=== PATIENT | female | born 1965 | race Caucasian/White ===

== ENCOUNTER → 2023-12-30 | Outpatient (CLI) | payer OTHER, SELFPAY ==
[2023-12-30 07:27] LABS: Bacteria 0 SEEN /hpf (None Seen); Mucous, Urine 0 SEEN /hpf (<or=2+); Red Blood Cells-Urine 0 SEEN /hpf (0-5)
--- OUTSIDE RECORDS SUMMARY | 2023-12-30 07:50 | XMS RPT_ITS | CCD ---
Author Name Unknown Address [address] [place] [address] Organization [facility] Care Team Providers Care Supervisor Alteration Workroom Name Role Phone Unavailable Unavailable Unavailable Belle, Shaina Unavailable Unavailable Belle, Shaina Unavailable Unavailable Belle, Shania Unavailable Unavailable Belle, Shaina Unavailable Unavailable Belle, Shaina Unavailable Unavailable Belle, Shaina Unavailable Unavailable Belle, Shaina Unavailable Unavailable Belle, Shaina Unavailable Unavailable Belle, Shaina Unavailable Unavailable Belle, Shaina Unavailable Unavailable Belle, Shaina Unavailable Unavailable Belle, Shaina Unavailable Unavailable Jing, Jack J Unavailable Unavailable Jing, Jack J Unavailable Unavailable BELLE, SHAINA ORCHANIAN Unavailable Unava ilable Delbert Cho Unavailable Unavailable Unavailable Munjapara, Valji Referring Unavailable Munjapara, Valji Primary Care Unavailable Munjapara, Valji Attending Unavailable Munjapara, Valji Referring Unavailable Munjapara, Valji Primary Care Unavailable Munjapara, Valji Attending Unavailable Munjapara, Valji Referring Unavailable Munjapara, Valji Primary Care Unavailable Munjapara, Valji Attending Unavailable Munjapara, Valji Primary Care Unavailable Munjapara, Valji Attending Unavailable Munjapara, Valji Referring Unavailable Delbert Cho MD Primary Care Provider MUNSHERRYPARA, VALJI Primary Care Unavailable MUNSHERRYPARA, VALJI Primary Care Unavailable Delbert Cho MD Primary Care Provider Allergies Allergy Classification Reported Allergen(s) Allergy Type Date of Onset Reaction(s) Facility torsemide (4 sources) torsemide; Translations: [Demadex] Drug Allergy [facility] Work Phone: (20 sources) torsemide; Translations: [Demadex] Drug Allergy 12-02-2022 Unknown [facility] (1 source) torsemide; Translations: [TORSEMIDE] Drug Allergy 12-02-2022 [facility] (1 source) Clindamycin Drug Allergy 12-29-2023 [facility] Medications Current Medications Medication Drug Class(es) Dates Sig (Normalized) Sig (Original) atorvastatin 20 mg oral tablet (20 sources) HMG-CoA Reductase Inhibitor Start: 12-10-2023 take 1 tablet by mouth once daily atorvastatin (Lipitor) 20 mg tablet Indications: Hyperlipidemia, unspecified hyperlipidemia type Take 1 tablet (20 mg) by mouth once daily. 90 tablet 3 12/10/2023 Active Completed/Discontinued Medications Medication Drug Class(es) Dates Sig (Normalized) Sig (Original) benzonatate 100 mg oral capsule (1 source) Non-narcotic Antitussive Start: 10-07-2019 End: 05-29-2023 take 100-200 mg by mouth every eight hours as needed for cough and cough benzonatate (TESSALON PERLES) 100 mg capsule Indications: Cough Take 1-2 capsules by mouth three times daily as needed. 30 capsule 0 10/07/2019 05/29/2023 Discontinued Problems Active Problems Problem Classification Problem Date Documented Date Episodic/Chronic Allergic reactions (20 sources) Contact dermatitis due to poison shaun; Translations: [Contact dermatitis and other eczema due to plants [except food]] Resolved: 06-25-2021 Episodic Anxiety disorders (20 sources) Generalized anxiety disorder; Translations: [Generalized anxiety disorder] Resolved: 12-03-2021 Chronic Disorders of lipid metabolism (20 sources) Hyperlipidemia; Translations: [Other and unspecified hyperlipidemia] Onset: 02-16-2023 12-29-2023 Chronic Esophageal disorders (20 sources) Gastroesophageal reflux disease; Translations: [Esophageal reflux] Chronic Essential hypertension (20 sources) Benign essential hypertension; Translations: [Benign essential hypertension] Onset: 12-29-2023 Resolved: 12-06-2013 12-29-2023 Chronic Past or Other Problems Problem Classification Problem Date Documented Date Episodic/Chronic Medical examination/evaluatio n (2 sources) Encounter for general adult medical examination without abnormal findings; Translations: [Encounter for general adult medical examination without abnormal findings] Onset: 07-03-2017 Episodic Osteoarthritis (20 sources) Osteoarthritis; Translations: [Osteoarthrosis, unspecified whether generalized or localized, site unspecified] Resolved: 05-09-2021 Chronic Other connective tissue disease (20 sources) Fibromyalgia; Translations: [Myalgia and myositis, unspecified] Resolved: 05-09-2021 Episodic Other connective tissue disease (16 sources) H/O: back problem; Translations: [Personal history of other musculoskeletal disorders] Resolved: 12-03-2021 Episodic Other infections; including parasitic (20 sources) H/O: viral illness; Translations: [Personal history of other infectious and parasitic diseases] Resolved: 05-09-2021 Episodic Other nervous system disorders (1 source) Carpal tunnel syndrome; Translations: [Carpal tunnel syndrome, unspecified upper limb] Onset: 04-15-2007 Resolved: 12-29-2023 12-29-2023 Chronic Other nervous system disorders (20 sources) History of clinical finding in subject; Translations: [Personal history of other disorders of nervous system and sense organs] Resolved: 05-09-2021 Episodic Results Test Name Value Interpretation Reference Range Facil ity Vital Signs Date Time Vital Sign Value Performing Clinician Facility 12-29-2023 14:43-0500 Body height 157.5 cm Delbert Cho MD Work Phone: [facility] 12-29-2023 14:43-0500 Body mass index (BMI) [Ratio] 36 kg/m2 Delbert Cho MD Work Phone: [facility] 12-29-2023 14:43-0500 Body temperature 96.01 [degF] Delbert Cho MD Work Phone: [facility] 12-29-2023 14:43-0500 Body weight 89.27 kg Delbert Cho MD Work Phone: [facility] 12-29-2023 14:43-0500 Diastolic blood pressure 61 mm[Hg] Delbert hCo MD Work Phone: [facility] 12-29-2023 14:43-0500 Heart rate 82 /min Delbert Cho MD Work Phone: [facility] 12-29-2023 14:43-0500 SaO2% (BldA) [Mass fraction] 96 % Delbert Cho MD Work Phone: [facility] 12-29-2023 14:43-0500 Systolic blood pressure 114 mm[Hg] Delbert Cho MD Work Phone: [facility] 05-29-2023 16:45-0400 Body temperature 98.29 [degF] Jarad Pryor MD Work Phone: [facility] 05-29-2023 16:45-0400 Body weight 82.74 kg Jarad Pryor MD Work Phone: [facility] 05-29-2023 16:45-0400 Diastolic blood pressure 72 mm[Hg] Jarad Pryor MD Work Phone: [facility] 05-29-2023 16:45-0400 Heart rate 83 /min Jarad Pryor MD Work Phone: [facility] 05-29-2023 16:45-0400 Respiratory rate 18 /min Jarad Pryor MD Work Phone: [facility] 05-29-2023 16:45-0400 SaO2% (BldA) [Mass fraction] 96 % Jarad Pryor MD Work Phone: [facility] 05-29-2023 16:45-0400 Systolic blood pressure 128 mm[Hg] Jarad Pryor MD Work Phone: [facility] 12-22-2022 16:53-0500 Body height 157.48 cm Delbert Cho Work Phone: [facility] Work Phone: 12-22-2022 16:53-0500 Body mass index (BMI) [Ratio] 35.67 kg/m2 Ashleymindy D Jordynpara Work Phone: [facility] Work Phone: 12-22-2022 16:53-0500 Body surface area Derived from formula 1.89 m2 Delbert D Jordynpara Work Phone: [facility] Work Phone: 12-22-2022 16:53-0500 Body temperature 97.5 [degF] Delbert D Jordynpara Work Phone: [facility] Work Phone: 12-22-2022 16:53-0500 Body weight 88.45 kg Delbert D Jordynpara Work Phone: [facility] Work Phone: 12-22-2022 16:53-0500 Diastolic blood pressure 88 mm[Hg] Delbert D Jordynpara Work Phone: [facility] Work Phone: 12-22-2022 16:53-0500 Heart rate 71 /min Delbert Cobbpara Work Phone: [facility] Work Phone: 12-22-2022 16:53-0500 SaO2% (BldA) [Mass fraction] 98 % Delbert Cobbpara Work Phone: [facility] Work Phone: 12-22-2022 16:53-0500 Systolic blood pressure 150 mm[Hg] Valmindy D Delfinjapara Work Phone: [facility] Work Phone: 05-26-2022 15:32-0400 Body height 157.48 cm Delbert D Delfinjapara Work Phone: [facility] Work Phone: 05-26-2022 15:32-0400 Body mass index (BMI) [Ratio] 34.75 kg/m2 Valmindy D Munjapara Work Phone: [facility] Work Phone: 05-26-2022 15:32-0400 Body surface area Derived from formula 1.87 m2 Valmindy D Delfinjapara Work Phone: [facility] Work Phone: 05-26-2022 15:32-0400 Body weight 86.18 kg Valmindy D Delfinjapara Work Phone: [facility] Work Phone: 05-26-2022 15:32-0400 Diastolic blood pressure 76 mm[Hg] Delbert D Delfinjapara Work Phone: [facility] Work Phone: 05-26-2022 15:32-0400 Heart rate 96 /min Delbert D Delfinjapara Work Phone: [facility] Work Phone: 05-26-2022 15:32-0400 SaO2% (BldA) [Mass fraction] 97 % Delbert D Delfinjapara Work Phone: [facility] Work Phone: 05-26-2022 15:32-0400 Systolic blood pressure 122 mm[Hg] Valmindy D Delfinjapara Work Phone: [facility] Work Phone: 04-17-2022 08:25-0400 Body height 157.48 cm Valmindy D Munjapara Work Phone: [facility] Work Phone: 04-17-2022 08:25-0400 Body mass index (BMI) [Ratio] 35.12 kg/m2 Valmindy D Munjapara Work Phone: [facility] Work Phone: 04-17-2022 08:25-0400 Body surface area Derived from formula 1.88 m2 Valmindy D Munjapara Work Phone: [facility] Work Phone: 04-17-2022 08:25-0400 Body temperature 97.2 [degF] Valmindy D Munjapara Work Phone: [facility] Work Phone: 04-17-2022 08:25-0400 Body weight 87.09 kg Valmindy D Munjapara Work Phone: [facility] Work Phone: 04-17-2022 08:25-0400 Diastolic blood pressure 78 mm[Hg] Valmindy D Munjapara Work Phone: [facility] Work Phone: 04-17-2022 08:25-0400 Heart rate 88 /min Valmindy D Munjapara Work Phone: [facility] Work Phone: 04-17-2022 08:25-0400 SaO2% (BldA) [Mass fraction] 98 % Delbert D Munjapara Work Phone: [facility] Work Phone: 04-17-2022 08:25-0400 Systolic blood pressure 118 mm[Hg] Valji D Munjapara Work Phone: [facility] Work Phone: 03-20-2022 08:34-0400 Body height 157.48 cm Valji D Munjapara Work Phone: [facility] Work Phone: 03-20-2022 08:34-0400 Body mass index (BMI) [Ratio] 35.89 kg/m2 Valmindy D Munjapara Work Phone: [facility] Work Phone: 03-20-2022 08:34-0400 Body surface area Derived from formula 1.9 m2 Valji D Munjapara Work Phone: [facility] Work Phone: 03-20-2022 08:34-0400 Body temperature 97.3 [degF] Valji D Munjapara Work Phone: [facility] Work Phone: 03-20-2022 08:34-0400 Body weight 89 kg Valji D Munjapara Work Phone: [facility] Work Phone: 03-20-2022 08:34-0400 Diastolic blood pressure 65 mm[Hg] Valji D Munjapara Work Phone: [facility] Work Phone: 03-20-2022 08:34-0400 Heart rate 66 /min Valji D Munjapara Work Phone: [facility] Work Phone: 03-20-2022 08:34-0400 SaO2% (BldA) [Mass fraction] 97 % Valji D Munjapara Work Phone: [facility] Work Phone: 03-20-2022 08:34-0400 Systolic blood pressure 112 mm[Hg] Valji D Munjapara Work Phone: [facility] Work Phone: 12-03-2021 13:54-0500 Body height 157.48 cm Valji D Munjapara Work Phone: [facility] Work Phone: 12-03-2021 13:54-0500 Body mass index (BMI) [Ratio] 36.21 kg/m2 Valji D Munjapara Work Phone: [facility] Work Phone: 12-03-2021 13:54-0500 Body surface area Derived from formula 1.9 m2 Delbert D Delfinjapara Work Phone: [facility] Work Phone: 12-03-2021 13:54-0500 Body weight 89.81 kg Valmindy D Delfinjapara Work Phone: [facility] Work Phone: 12-02-2021 13:19-0500 Body height 157.48 cm Delbert D Delfinjapara Work Phone: [facility] Work Phone: 12-02-2021 13:19-0500 Body mass index (BMI) [Ratio] 36.21 kg/m2 Delbert D Delfinjapara Work Phone: [facility] Work Phone: 12-02-2021 13:19-0500 Body surface area Derived from formula 1.9 m2 Delbert D Delfinjapara Work Phone: [facility] Work Phone: 12-02-2021 13:19-0500 Body temperature 97.3 [degF] Delbert D Delfinjapara Work Phone: [facility] Work Phone: 12-02-2021 13:19-0500 Body weight 89.81 kg Valji D Munjapara Work Phone: [facility] Work Phone: 12-02-2021 13:19-0500 Diastolic blood pressure 80 mm[Hg] Valmindy D Munjapara Work Phone: [facility] Work Phone: 12-02-2021 13:19-0500 Heart rate 93 /min Delbert Banksa Work Phone: [facility] Work Phone: 12-02-2021 13:19-0500 Respiratory rate 18 /min Delbert Cobbpara Work Phone: [facility] Work Phone: 12-02-2021 13:19-0500 SaO2% (BldA) [Mass fraction] 98 % Delbert Cho Work Phone: [facility] Work Phone: 12-02-2021 13:19-0500 Systolic blood pressure 110 mm[Hg] Delbert Banksa Work Phone: [facility] Work Phone: 06-25-2021 09:01-0400 Body height 157.48 cm Delbert Cho Work Phone: [facility] Work Phone: 06-25-2021 09:01-0400 Body mass index (BMI) [Ratio] 35.56 kg/m2 Delbert Banksa Work Phone: [facility] Work Phone: 06-25-2021 09:01-0400 Body surface area Derived from formula 1.89 m2 Delbert Banksa Work Phone: [facility] Work Phone: 06-25-2021 09:01-0400 Body temperature 96.6 [degF] Delbert Cobbpara Work Phone: [facility] Work Phone: 06-25-2021 09:01-0400 Body weight 88.18 kg Delbert Cobbpara Work Phone: [facility] Work Phone: 06-25-2021 09:01-0400 Diastolic blood pressure 57 mm[Hg] Delbert Cobbpara Work Phone: [facility] Work Phone: 06-25-2021 09:01-0400 Heart rate 69 /min Delbert Cobbpara Work Phone: [facility] Work Phone: 06-25-2021 09:01-0400 SaO2% (BldA) [Mass fraction] 97 % Delbert Cobbpara Work Phone: [facility] Work Phone: 06-25-2021 09:01-0400 Systolic blood pressure 117 mm[Hg] Delbert Cobbpara Work Phone: [facility] Work Phone: 05-09-2021 08:47-0400 Body height 157.48 cm Delbert Cobbpara Work Phone: [facility] Work Phone: 05-09-2021 08:47-0400 Body mass index (BMI) [Ratio] 36.03 kg/m2 Delbert Cobbpara Work Phone: [facility] Work Phone: 05-09-2021 08:47-0400 Body surface area Derived from formula 1.9 m2 Delbert Cobbpara Work Phone: [facility] Work Phone: 05-09-2021 08:47-0400 Body temperature 96.4 [degF] Delbert D Jordynpara Work Phone: [facility] Work Phone: 05-09-2021 08:47-0400 Body weight 89.36 kg Delbert D Delfinjapara Work Phone: [facility] Work Phone: 05-09-2021 08:47-0400 Diastolic blood pressure 92 mm[Hg] Delbert Cho Work Phone: [facility] Work Phone: 05-09-2021 08:47-0400 Heart rate 56 /min Delbert Cho Work Phone: [facility] Work Phone: 05-09-2021 08:47-0400 SaO2% (BldA) [Mass fraction] 98 % Delbert Mark Cho Work Phone: [facility] Work Phone: 05-09-2021 08:47-0400 Systolic blood pressure 150 mm[Hg] Delbert Cho Work Phone: [facility] Work Phone: Encounters Encounter Date Encounter Type Care Provider Facility Start: 12-29-2023 End: 12-29-2023 Office outpatient visit 25 minutes Delbert Cho MD Work Phone: [facility] Procedures Date Procedure Procedure Detail Performing Clinician Start: 12-29-2023 Mammography Delbert mccabe MD Work Phone: Start: 12-29-2023 Microscopic observat ion [Identifier] in Cervix by Cyto stain Delbert Cho MD Work Phone: Start: 05-29-2023 Urnls dip stick/tabl et rgnt auto w/o microscopy Ellen Parry AIR BRAKE ADJUSTER.ELECTRICAL INSTRUMENT TECHNICIAN Work Phone: Start: 12-30-2022 Lipid 1996 panel - S carlos or Plasma Delbert Cho MD Work Phone: Start: 12-30-2022 Thyrotropin [Units/v olume] in Serum or Plasma Delbert Cho MD Work Phone: Start: 04-15-2016 Mammography Jarad ramos MD Work Phone: Release of trigger finger [facility] Work Phone: Plan of Treatment Date Care Activity Detail Author Start: 12-31-2027 Lipid panel Lipid Panel [facility] Start: 12-28-2026 Screening for malign ant neoplasm of cervix [facility] Start: 12-30-2025 Diabetes mellitus screening Diabetes Screening [facility] Start: 12-29-2024 Yearly Adult Physical Yearly Adult P hysical [facility] Start: 12-28-2024 Screening for malign ant neoplasm of breast Mammogram [facility] Start: 08-04-2024 Screening for malign ant neoplasm of colon [facility] Start: 04-24-2024 Influenza vaccination Influenza Vacc ine (#1) [facility] Immunizations Immunization Date Immunization Notes Care Provider Andrae jonesdeclan 08-27-2022 influenza, injectabl e, quadrivalent, preservative free Valji Mark Munjapara Work Phone: [facility] Work Phone: 08-27-2022 influenza virus vaccine, unspecified formulation Delbert Cho MD Work Phone: [facility] Work Phone: 12-14-2021 Comirnaty 30 MCG/0.3 ML Intramuscular Suspension Valji Mark Cobbpara Work Phone: [facility] Work Phone: 08-14-2021 influenza, injectabl e, quadrivalent, preservative free Valji D Munjapara Work Phone: [facility] Work Phone: 01-10-2021 Pfizer-BioNTech COVID-19 Vacc 30 MCG/0.3ML Intramuscular Suspension Valji D Munjapara Work Phone: [facility] Work Phone: 12-20-2020 Pfizer-BioNTech COVID-19 Vacc 30 MCG/0.3ML Intramuscular Suspension Valji D Munjapara Work Phone: [facility] Work Phone: 06-22-2020 influenza virus vaccine, unspecified formulation Delbert Cho Work Phone: [facility] Work Phone: Payers Date Payer Category Payer Unknown [id number] 2019 Unknown 1965 Unknown [id number] 1965 Unknown [id number] [id number] 1965 Unknown [id number] [id number]. [id number] 1965 Unknown [id number] Social History Date Type Detail Facility Start: 07-01-2017 End: 07-03-2017 Tobacco smoking status WIIS Unknown if ever smoked [facility] Work Phone: Start: 1965 Sex Assigned At Not on file [facility] Work Phone: Start: 09-30-2020 End: 05-29-2023 [facility] Work Phone: Start: 04-15-2016 End: 12-29-2023 Tobacco smoking status NHIS Never smoked tobacco [facility] Start: 04-15-2016 End: 12-29-2023 Tobacco use and exposure Smokeless tobacco non-user [facility] Start: 05-29-2023 Alcohol intake 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 (finding) [facility] Start: 09-30-2020 End: 05-29-2023 Tobacco use panel [facility] National Score (1-100), lower number is lower risk Not on file [facility] Start: 12-29-2023 Alcohol intake Ex-drinker (finding) [facility] Work Phone: Start: 12-19-2023 End: 12-29-2023 Exposure to SARS-CoV-2 (event) Not sure [facility] Medical Equipment Procedure Code Equipment Code Equipment Origin al Text Equipment Identifier Dates Once a week [id number] Start: 01-02-2023 End: 12-29-2023 Clinical Notes 12-02-2022 to 12-29-2023 Assessment & Plan Note - Delbert Cho MD - 12/29/2023 3:06 PM ESTAssessment & Plan Note - Delbert Cho MD - 12/29/2023 3:06 PM Jarad Ulloa MD - 05/29/2023 4:53 PM EDT Note Date & Type Note Facility 12-29-2023 Evaluation + Plan note Associated Problem(s): Benign essential hypertension Patients BP readings reviewed and addressed, as we age our arteries turn stiffer and less elastic. Restricting salt consumption and staying physically fit with regular exercise regimen is the only way to keep our vasculature less tonic. Studies have shown that keeping ideal body wt, exercise routine about 140 to 150 minutes a week, eating variety of plant based diet and drinking plentiful water are quite helpful. Monitor BP twice or once a week at home and bring log to be reviewed by me. Uncontrolled BP has rat exterminator consequences including heart failure, myocardial infarction, accelerated atherosclerosis and kidney dysfunction. Therapy reviewed and explained. [facility] Work Phone: 12-29-2023 Miscellaneous Notes Associated Problem(s): Benign essential hypertension Patients BP readings reviewed and addressed, as we age our arteries turn stiffer and less elastic. Restricting salt consumption and staying physically fit with regular exercise regimen is the only way to keep our vasculature less tonic. Studies have shown that keeping ideal body wt, exercise routine about 140 to 150 minutes a week, eating variety of plant based diet and drinking plentiful water are quite helpful. Monitor BP twice or once a week at home and bring log to be reviewed by me. Uncontrolled BP has rat exterminator consequences including heart failure, myocardial infarction, accelerated atherosclerosis and kidney dysfunction. Therapy reviewed and explained. documented in this encounter [facility] Work Phone: 05-29-2023 Note HNO ID: [id number] Author: Jarad Pryor MD Service: ? Author Type: Physician Type: Progress Notes Filed: 05/29/2023 5:17 PM Note Text: Patient presents with: Urinary Frequency: Frequency, burning and urgency x 1 week HPI: Symptoms for 1 week. Dysuria: some, resolved Frequency: Yes Hematuria: No Discharge/vaginal irritation: No Nausea: No Fever or chills: No Back pain: bilateral lower back Abdominal pain: No Prior UTI: Yes Personal history of kidney stones: No MEDICATIONS: Current Outpatient Medications Medication Sig atorvastatin (LIPITOR) 10 mg tablet Take by mouth. Benazepril-hydroCHLOROthiazide 10-12.5 mg per tablet pantoprazole DR (PROTONIX) 40 mg tablet Take 40 mg by mouth. levothyroxine sodium(SYNTHROID 50 MCG TAB) 100mcg Take one(1) tablet daily. cholecalciferol, Vitamin D3, (VITAMIN D3) 50,000 unit cap capsule Take 1 capsule by mouth once each week. (Patient not taking: Reported on 10/07/2019 ) No current facility-administered medications for this visit. ALLERGIES: ALLERGIES Allergen Reactions Torsemide Unknown VITALS: BP 128/72 Pulse 83 Temp 36.8 ?C (98.3 ?F) (Tympanic) Resp 18 Wt 82.7 kg (182 lb 6.4 oz) LMP 02/18/2008 SpO2 96% BMI 32.83 kg/m? PHYSICAL EXAM: GEN: NAD HEENT: EOMI, conjunctiva clear, HEART: regular rate and rhythm, no murmurs LUNGS: clear to auscultation, no wheezes or crackles, no increased WOB ABDOMEN: Soft, nondistended, no masses, lower abdominal discomfort without tenderness BACK: No CVA tenderness ASSESSMENT/PLAN: 1. Urinary frequency - ICD9: 788.41, ICD10: R35.0 - UA positive for reginaldo esterase. Symptoms consistent with urinary tract infection. - UA DIP, URINE (POC) Start nitrofurantoin. - URINE CULTURE Jarad Pryor MD [facility] 05-29-2023 History of Presen t illness Narrative Patient presents with: Urinary Frequency: Frequency, burning and urgency x 1 week HPI: Symptoms for 1 week. Dysuria: some, resolved Frequency: Yes Hematuria: No Discharge/vaginal irritation: No Nausea: No Fever or chills: No Back pain: bilateral lower back Abdominal pain: No Prior UTI: Yes Personal history of kidney stones: No MEDICATIONS: Current Outpatient Medications Medication Sig atorvastatin (LIPITOR) 10 mg tablet Take by mouth. Benazepril-hydroCHLOROthiazide 10-12.5 mg per tablet pantoprazole DR (PROTONIX) 40 mg tablet Take 40 mg by mouth. levothyroxine sodium(SYNTHROID 50 MCG TAB) 100mcg Take one(1) tablet daily. cholecalciferol, Vitamin D3, (VITAMIN D3) 50,000 unit cap capsule Take 1 capsule by mouth once each week. (Patient not taking: Reported on 10/07/2019 ) No current facility-administered medications for this visit. ALLERGIES: ALLERGIES Allergen Reactions Torsemide Unknown VITALS: BP 128/72 Pulse 83 Temp 36.8 C (98.3 F) (Tympanic) Resp 18 Wt 82.7 kg (182 lb 6.4 oz) LMP 02/18/2008 SpO2 96% BMI 32.83 kg/m PHYSICAL EXAM: GEN: NAD HEENT: EOMI, conjunctiva clear, HEART: regular rate and rhythm, no murmurs LUNGS: clear to auscultation, no wheezes or crackles, no increased WOB ABDOMEN: Soft, nondistended, no masses, lower abdominal discomfort without tenderness BACK: No CVA tenderness ASSESSMENT/PLAN: 1. Urinary frequency - ICD9: 788.41, ICD10: R35.0 - UA positive for reginaldo esterase. Symptoms consistent with urinary tract infection. - UA DIP, URINE (POC) Start nitrofurantoin. - URINE CULTURE Jarad Pryor MD documented in this encounter [facility] 12-02-2022 Note HNO ID: [id number] Author: Bradley Fontanez APRN.ELECTRICAL INSTRUMENT TECHNICIAN Service: ? Author Type: Nurse Practitioner Type: Progress Notes Filed: 12/02/2022 8:20 AM Note Text: Subjective HPI A nontoxic appearing female presents to urgent care with chief complaint of possible UTI. Duration of symptoms 4 days. Associated symptoms dysuria, frequency, and urgency. Patient has history of UTIs in past with similar signs and symptoms. Patient denies the use of any [id number] medications or home remedies for symptom management. Patient states pain is a 3/10. Patient denies any fevers, flank pain, abdominal pain, nausea, vomiting, vaginal discharge, or urological abnormalities. Past medical history prescription medication use and previous labs reviewed. .Patient presents with: Urinary Problem: Pt reported urinary frequency, burning with urination x4 days. PAST MEDICAL HISTORY Diagnosis Date Esophageal reflux Gastroesophageal reflux Other and unspecified hyperlipidemia Hyperlipidemia Unspecified hypothyroidism PAST SURGICAL HISTORY Procedure Laterality Date PAST SURGICAL HISTORY OF 2004 [facility] thermal ablation/[place], [place] ALLERGIES Torsemide MEDICATIONS atorvastatin (LIPITOR) 10 mg tablet Take by mouth. Benazepril-hydroCHLOROthiazide 10-12.5 mg per tablet levothyroxine sodium(SYNTHROID 50 MCG TAB) 100mcg Take one(1) tablet daily. pantoprazole DR (PROTONIX) 40 mg tablet Take 40 mg by mouth. (Patient not taking: Reported on 12/02/2022) benzonatate (TESSALON PERLES) 100 mg capsule Take 1-2 capsules by mouth three times daily as needed. (Patient not taking: Reported on 12/02/2022) cyanocobalamin (VITAMIN B-12) 1,000 mcg tab Take 1,000 mcg by mouth once daily. (Patient not taking: Reported on 12/02/2022) cholecalciferol, Vitamin D3, (VITAMIN D3) 50,000 unit cap capsule Take 1 capsule by mouth once each week. (Patient not taking: Reported on 10/07/2019 ) DULoxetine (CYMBALTA) 30 mg capsule Take 30 mg by mouth once daily. (Patient not taking: Reported on 12/02/2022) FAMILY HISTORY Problem Relation Age of Onset Cancer Mother oral Cancer Father prostate Heart Father Diabetes Son type 1 Social History Tobacco Use Smoking status: Never Smokeless tobacco: Never Substance Use Topics Alcohol use: No Drug use: No BP 128/76 Pulse 69 Temp 36.9 ?C (98.4 ?F) (Tympanic) Resp 18 Wt 86.4 kg (190 lb 6.4 oz) LMP 02/18/2008 SpO2 96% BMI 34.27 kg/m? Review of Systems Constitutional: Negative for chills, fever and malaise/fatigue. HENT: Negative for congestion, ear discharge, ear pain, sinus pain and sore throat. Eyes: Negative for blurred vision, pain, discharge and redness. Respiratory: Negative for cough, hemoptysis, sputum production, shortness of breath, wheezing and stridor. Cardiovascular: Negative for chest pain. Gastrointestinal: Negative for abdominal pain, diarrhea, nausea and vomiting. Genitourinary: Positive for dysuria, frequency, hematuria and urgency. Negative for flank pain. Musculoskeletal: Negative for myalgias. Skin: Negative for itching and rash. Neurological: Negative for dizziness and headaches. Objective Physical Exam Constitutional: General: She is not in acute distress. Appearance: She is not diaphoretic. HENT: Head: Normocephalic. Eyes: Conjunctiva/sclera: Conjunctivae normal. Pupils: Pupils are equal, round, and reactive to light. Cardiovascular: Rate and Rhythm: Normal rate and regular rhythm. Heart sounds: Normal heart sounds. Pulmonary: Effort: Pulmonary effort is normal. No tachypnea, accessory muscle usage or respiratory distress. Breath sounds: Normal breath sounds. No stridor. No wheezing, rhonchi or rales. Abdominal: General: There is no distension. Palpations: Abdomen is soft. Tenderness: There is no abdominal tenderness. There is no right CVA tenderness, left CVA tenderness, guarding or rebound. Musculoskeletal: Cervical back: Normal range of motion. Skin: General: Skin is warm and dry. Neurological: Mental Status: She is alert and oriented to person, place, and time. ASSESSMENT/PLAN: 1. Urinary frequency - ICD9: 788.41, ICD10: R35.0 - UA DIP, URINE (POC) - URINE CULTURE Blood protein leukocytes nitrites noted on urine dip. History of UTIs this feels similar. Patient will be placed on Keflex antibiotics. Urine culture ordered. Tailor antibiotic therapy to culture results. Follow-up with PCP 7 to 10 days for repeat urinalysis. Patient was educated on supportive therapies. Patient was instructed to immediately proceed to emergency room for any new, worsening, or symptoms lasting longer than anticipated. The patient's clinical presentation is otherwise unremarkable at this time. Based on exam and clinical finding, the patient is stable for discharge. Plan of care was discussed with patient. Patient verbalizes understanding and agrees to plan of care. This note was (more content not included)... [facility] Diagnosis Obesity, unspecified classification, unspecified obesity type, unspecified whether serious comorbidity present- Primary Encounter for screening mammogram for malignant neoplasm of breast Hypertension, unspecified type Annual visit for general adult medical examination with abnormal findings Benign essential hypertension Essential hypertension, benign Acquired hypothyroidism Unspecified hypothyroidism Hyperlipemia, mixed Mixed hyperlipidemia Encounter for screening mammogram for malignant neoplasm of breast documented in this encounter [facility] Work Phone: History of Present illness Narrative* This is a 55-year-old patient who had a history of sleep apnea obesity hypertension hyperlipidemia menopause thyroid dysfunction complaining of the maculopapular vesicular skin lesion after exposure to poison shaun onset acutely duration 1 week progressed intermittently aggravating factor immunocompromised condition anxiety anemia thyroid dysfunction's contact dermatitis with the pruritus insomnia try Benadryl Lidex cream does not get any better advised to get Kenalog 40 intramuscular Medrol Dosepak Benadryl hydration sent for the blood test follow-up recommended. * Comorbid condition obesity hypertension hyperlipidemia hypothyroidism acid reflux and insulin resistance syndrome * Negative for COVID-19 * Negative for rectal bleeding vaginal bleeding hematuria [facility] Work Phone: History of Present illness Narrative* This is a 56-year-old patient have anxiety obesity sleep apnea hypertension hyperlipidemia came forphysical discuss about weight and back pain * Patient is 56-year-old have 4 children no siblings * Mother have oral cancer * Father of heart attack * History of ablation therapy carpal tunnel * Complaining of the arthralgia myalgia fatigue tired lower back pain onset gradually duration few weeks progressed intermittently aggravated by cholesterol medication obesity and arthritis. * No skin rash no trauma * Negative for COVID-19 [facility] Work Phone: History of Present illness Narrative* 56-year-old patient have a hypertension hyperlipidemia acid reflux is complaining of acute on chronic right and left palm neck pain leg pain arthralgia myalgia fatigue tired weakness onset gradually duration few weeks progressed intermittently * Problem #1 neck pain shoulder pain arm pain plan ibuprofen x-ray blood tests if problems continue advised to get follow-up rule out any TIA versus exacerbation of underlying thyroid dysfunctions * Hyperlipidemia Lipitor * Proteinuria Lotrel * Gastritis Protonix * Hypothyroidism check T3-T4 TSH hold levothyroxine * Sent for the x-ray of the right shoulder blood test follow-up in a 2 weeks if does not get any better go to the emergency room right away [facility] Work Phone: History of Present illness Narrative* This is a 56-year-old patient have a gastritis arthritis obesity hypertension hyperlipidemia complaining of the decreased ADL decreased mobility arthralgia myalgia fatigue tired weakness lethargic because of the weight gain * Arthralgia myalgia fatigue tired secondary to metabolic syndrome obesity shoulder pain metformin * Negative for fall * Negative but imaging pleuritic chest pain palpitation or headache * Negative for DVT PE or COVID-19 [facility] Work Phone: History of Present illness Narrative* This is a 56-year-old patient have a gastritis arthritis obesity hypertension hyperlipidemia complaining of the decreased ADL decreased mobility arthralgia myalgia fatigue tired weakness lethargic because of the weight gain * Arthralgia myalgia fatigue tired secondary to metabolic syndrome obesity shoulder pain metformin * Negative for fall * Negative but imaging pleuritic chest pain palpitation or headache * Negative for DVT PE or COVID-19 * Obstructive sleep apnea diet exercise Flonase uses CPAP nightly depression 25 from today sleep study later [facility] Work Phone: History of Present illness Narrative* 57-year-old patient who had a history of obesity hypertension hyperlipidemia sleep apnea complaining of cough congestion arthralgia myalgia fatigue tired weakness without any choking angioedema hypokalemia patient developed cough irritation in the throat after taking benazepril * Advised discontinue benazepril take some Benadryl Pepcid AC good Benicar * At age of 57 female advised skin cancer breast cancer cervical cancer colon cancer screening sent for the Cologuard and mammogram * Patient would like to lose weight given diet exercise plus Saxenda side effect of pancreatitis explained [facility] Work Phone: History of Present illness Narrative* Delbert Cho MD - 12/29/2023 3:45 PM EST Subjective Patient ID: Chrystal Castaneda is a 58 y.o. female who presents for Fatigue (Over a month now ). Assessment/Plan Obesity BMI 36 advised diet exercise sleep apnea test dietitian evaluation given Ozempic Hypertension Lotensin monitor BMP twice a year Hyperlipidemia Lipitor 20 mg check LFT lipid CPK once a year Hypothyroidism Synthroid 100 mcg a day TSH twice a year Arthritis vitamin C vitamin D calcium supplement Gastritis Protonix 40 mg a day magnesium once a year Refer to GI Dr. Hernandez [facility] [facility] [facility] Dr. Klein Advised to get hepatitis B MMR Tdap zoster COVID-19 vaccine from pharmacy follow-up 3 months Problem List Items Addressed This Visit Acquired hypothyroidism Hyperlipemia, mixed Annual visit for general adult medical examination with abnormal findings Relevant Orders HIV 1/2 Antigen/Antibody Screen with Reflex to Confirmation Hepatitis C antibody CBC and Auto Differential Comprehensive Metabolic Panel Hemoglobin A1C Lipid Panel TSH with reflex to Free T4 if abnormal Microscopic Only, Urine Colonoscopy Screening; Average Risk Patient Benign essential hypertension Patients BP readings reviewed and addressed, as we age our arteries turn stiffer and less elastic. Restricting salt consumption and staying physically fit with regular exercise regimen is the only way to keep our vasculature less tonic. Studies have shown that keeping ideal body wt, exercise routine about 140 to 150 minutes a week, eating variety of plant based diet and drinking plentiful water are quite helpful. Monitor BP twice or once a week at home and bring log to be reviewed by me. Uncontrolled BP has chcf consequences including heart failure, myocardial infarction, accelerated atherosclerosis and kidney dysfunction. Therapy reviewed and explained. Obesity - Primary Relevant Orders HIV 1/2 Antigen/Antibody Screen with Reflex to Confirmation Hepatitis C antibody CBC and Auto Differential Comprehensive Metabolic Panel Hemoglobin A1C Lipid Panel TSH with reflex to Free T4 if abnormal Microscopic Only, Urine Colonoscopy Screening; Average Risk Patient Patient was evaluated today, problem list was reviewed, problems and concerns addressed, Rx list reviewed and updated, lab and tests were noted and reviewed. Life style changes were discussed, alwaysit works better if we eat plant based diet and plenty of fibres and roughage. Consume adequate amount of water and avoid alcohol, light to moderate physical activities and stress reduction are alwaysbeneficial for ongoing physical well being. Do not forget to have 6 to 7 hours of sleep regularly and avoid late night yolis screen exposure. HPI 58-year-old patient have metabolic syndrome insulin resistance syndrome hypertension hyperlipidemia hyperglycemia hypothyroidism gastritis sleep apnea complaining arthralgia myalgia extremity fatigue and weakness onset gradual duration few months progressed slowly aggravated by polypharmacy endocrine problem obesity sleep apnea underlying sugar and insulin resistance syndrome cannot be rule out. Patient with the help of diet exercise Ozempic successfully lost weight and feeling much better last time. Past Medical History: Diagnosis Date Allergic contact dermatitis due to plants, except food 05/09/2021 Poison shuan Anesthesia of skin Numbness and tingling Anxiety disorder, unspecified Anxiety and depression Essential (primary) hypertension 09/27/2013 Benign essential hypertension Fibromyalgia 03/02/2018 Fibromyalgia muscle pain Functional dyspepsia Indigestion Generalized anxiety disorder 12/02/2021 MELISA (generalized anxiety disorder) Menopausal and female climacteric states 04/10/2014 Perimenopause Other thyrotoxicosis without thyrotoxic crisis or storm 12/02/2021 Iatrogenic hyperthyroidism Pain in right shoulder 04/17/2022 Chronic right shoulder pain Pain in unspecified joint 11/27/2015 Pain in joints Personal history of diseases of the blood and blood-forming organs and certain disorders involving the immune mechanism History of anemia Personal history of diseases of the skin and subcutaneous tissue 04/19/2018 History of eczema Personal history of diseases of the skin and subcutaneous tissue 04/19/2018 History of folliculitis Personal history of other diseases of the female genital tract Vaginal delivery Personal history of other diseases of the musculoskeletal system and connective tissue 07/07/2017 History of muscle pain Personal history of other diseases of the musculoskeletal system and connective tissue 07/07/2017 History of muscle pain Personal history of other diseases of the musculoskeletal system and connective tissue 12/02/2021 History of low back pain Personal history of other diseases of the nervous system and sense organs 03/02/2018 History of neuropathy Personal history of other diseases of the nervous system and sense organs 12/02/2021 History of obstructive sleep apnea Personal history of other endocrine, nutritional and metabolic disease 04/17/2022 History of obesity Personal history of other endocrine, nutritional and metabolic disease 03/21/2022 History of vitamin D deficiency Personal history of other endocrine, nutritional and metabolic disease History of thyroid disease Personal history of other infectious and parasitic diseases 11/28/2015 History of Harrison-Anderson virus infection Personal history of other infectious and parasitic diseases History of mumps Personal history of other infectious and parasitic diseases History of varicella Personal history of other specified conditions 07/07/2017 History of edema Personal history of other specified conditions 04/21/2019 History of fatigue Personal history of urinary (tract) infections 05/06/2019 History of urinary tract infection Radiculopathy, cervical region 03/02/2018 Acute cervical radiculopathy Unspecified osteoarthritis, unspecified site 03/02/2018 OA (osteoarthritis) Past Surgical History: Procedure Laterality Date CARPAL TUNNEL RELEASE Bilateral FINGER SURGERY Allergies Allergen Reactions Clindamycin Swelling Torsemide Unknown Current Outpatient Medications Medication Sig Dispense Refill atorvastatin (Lipitor) 20 mg tablet Take 1 tablet (20 mg) by mouth once daily. 90 tablet 3 benazepriL-hydrochlorothiazide (Lotensin HCT) 10-12.5 mg tablet TAKE 1 TABLET TWICE A DAY (Patient taking differently: Take 1 tablet by mouth once daily.) 180 tablet 3 Synthroid 100 mcg tablet Take 1 tablet (100 mcg) by mouth see administration instructions. Take 1 tablet by mouth daily Thursday through Thursday. Take 1/2 tablet on Thursday and Thursday 90 tablet 3 No current facility-administered medications for this visit. Family History Problem Relation Name Age of Onset Other (oral cancer) Mother Glaucoma Mother Heart disease Father Prostate cancer Father Social History Socioeconomic History Marital status: Spouse name: None Number of children: None Years of education: None Highest education level: None Occupational History None Tobacco Use Smoking status: Never Smokeless tobacco: Never Substance and Sexual Activity Alcohol use: Not Currently Alcohol/week: 0.0 - 1.0 standard drinks of alcohol Drug use: Never Sexual activity: None Other Topics Concern None Social History Narrative None Social Determinants of Health Financial Resource Strain: Not on file Food Insecurity: Not on file Transportation Needs: Not on file Physical Activity: Not on file Stress: Not on file Social Connections: Not on file Intimate Partner Violence: Not on file Housing Stability: Not on file Immunization History Administered Date(s) Administered Flu vaccine (IIV4), preservative free *Check age/dose* 08/14/2021, 08/27/2022 Influenza, Unspecified 07/18/2013, 06/22/2020 Pfizer Torres Cap SARS-CoV-2 12/14/2021 Pfizer Purple Cap SARS-CoV-2 12/20/2020, 01/10/2021 Review of Systems Review of systems is otherwise negative unless stated above or in history of present illness. Objective Visit Vitals BP 114/61 (BP Location: Left arm, Patient Position: Sitting, BP Cuff Size: Large adult) Pulse 82 Temp 35.6 C (96 F) Ht 1.575 m (5' 2 ) Wt 89.3 kg (196 lb 12.8 oz) SpO2 96% BMI 36.00 kg/m Smoking Status Never BSA 1.98 m Physical Exam Constitutional: BMI 36 General: not in acute distress. HENT: Head: Normocephalic and atraumatic. Nose: Nose normal. Eyes: Extraocular Movements: Extraocular movements intact. Conjunctiva/sclera: Conjunctivae normal. Cardiovascular: Heart murmur Rate and Rhythm: Normal rate , No M/R/G Pulmonary: Effort: Pulmonary effort is normal. Breath sounds: Normal, Bilat Equal AE Skin: General: Skin is warm. Neurological: Fibromyalgia Mental Status: He is alert and oriented to person, place, and time. Psychiatric: Mood and Affect: Mood normal. Behavior: Behavior normal. Musculoskeletal fibromyalgia fatigue FROM in all extremitirs, Joint-no swelling or tenderness No visits with results within 4 Month(s) from this visit. Latest known visit with results is: Orders Only on 12/30/2022 Component Date Value Ref Range Status WBC, Urine 12/30/2022 13 (A) 0 - 5 /HPF Final RBC, Urine 12/30/2022 2 0 - 5 /HPF Final Squamous Epithelial Cells, Urine 12/30/2022 3 /HPF Final Renal Epithalial Cells, Urine 12/30/2022 <1 /HPF Final Mucus, Urine 12/30/2022 2+ /LPF Final Radiology: Reviewed imaging in powerchart. BI mammo bilateral screening tomosynthesis Result Date: 12/29/2023 These images are not reportable by radiology and will not be interpreted by Radiologists. Charting was completed using voice recognition technology and may include unintended errors. documented in this [facility] Work Phone: Summary Purpose Family History Unknown Family Member Name Dates Details Oral cancer: Mother Status:Active : Mother, Father Status:Active Family history of myocardial infarction: Father(V17.3, Z82.49) Status:Active Unknown Family Member Name Dates Details Oral cancer: Mother Status:Active : Mother, Father Status:Active Family history of myocardial infarction: Father(V17.3, Z82.49) Status:Active Unknown Family Member Name Dates Details Oral cancer: Mother Status:Active : Mother, Father Status:Active Family history of myocardial infarction: Father(V17.3, Z82.49) Status:Active Unknown Family Member Name Dates Details Oral cancer: Mother Status:Active : Mother, Father Status:Active Family history of myocardial infarction: Father(V17.3, Z82.49) Status:Active Unknown Family Member Name Dates Details Oral cancer: Mother Status:Active : Mother, Father Status:Active Family history of myocardial infarction: Father(V17.3, Z82.49) Status:Active Unknown Family Member Name Dates Details Oral cancer: Mother Status:Active : Mother, Father Status:Active Family history of myocardial infarction: Father(V17.3, Z82.49) Status:Active Unknown Family Member Name Dates Details Oral cancer: Mother Status:Active : Mother, Father Status:Active Family history of myocardial infarction: Father(V17.3, Z82.49) Status:Active Unknown Family Member Name Dates Details Oral cancer: Mother Status:Active : Mother, Father Status:Active Family history of myocardial infarction: Father(V17.3, Z82.49) Status:Active Unknown Family Member Name Dates Details Oral cancer: Mother Status:Active : Mother, Father Status:Active Family history of myocardial infarction: Father(V17.3, Z82.49) Status:Active Unknown Family Member Name Dates Details Oral cancer: Mother Status:Active : Mother, Father Status:Active Family history of myocardial infarction: Father(V17.3, Z82.49) Status:Active Unknown Family Member Name Dates Details Family history of myocardial infarction: Father(V17.3, Z82.49) Status:Active : Mother, Father Status:Active Oral cancer: Mother Status:Active Unknown Family Member Name Dates Details Oral cancer: Mother Status:Active : Mother, Father Status:Active Family history of myocardial infarction: Father(V17.3, Z82.49) Status:Active Unknown Family Member Name Dates Details Oral cancer: Mother Status:Active : Mother, Father Status:Active Family history of myocardial infarction: Father(V17.3, Z82.49) Status:Active Unknown Family Member Name Dates Details Oral cancer: Mother Status:Active : Mother, Father Status:Active Family history of myocardial infarction: Father(V17.3, Z82.49) Status:Active Unknown Family Member Name Dates Details Oral cancer: Mother Status:Active : Mother, Father Status:Active Family history of myocardial infarction: Father(V17.3, Z82.49) Status:Active Unknown Family Member Name Dates Details Oral cancer: Mother Status:Active : Mother, Father Status:Active Family history of myocardial infarction: Father(V17.3, Z82.49) Status:Active Unknown Family Member Name Dates Details Oral cancer: Mother Status:Active : Mother, Father Status:Active Family history of myocardial infarction: Father(V17.3, Z82.49) Status:Active Unknown Family Member Name Dates Details Oral cancer: Mother Status:Active : Mother, Father Status:Active Family history of myocardial infarction: Father(V17.3, Z82.49) Status:Active Unknown Family Member Name Dates Details Oral cancer: Mother Status:Active : Mother, Father Status:Active Family history of myocardial infarction: Father(V17.3, Z82.49) Status:Active Unknown Family Member Name Dates Details : Mother, Father Status:Active Oral cancer: Mother Status:Active Family history of myocardial infarction: Father(V17.3, Z82.49) Status:Active Unknown Family Member Name Dates Details : Mother, Father Status:Active Oral cancer: Mother Status:Active Family history of myocardial infarction: Father(V17.3, Z82.49) Status:Active Unknown Family Member Name Dates Details : Mother, Father Status:Active Oral cancer: Mother Status:Active Family history of myocardial infarction: Father(V17.3, Z82.49) Status:Active Unknown Family Member Name Dates Details Oral cancer: Mother Status:Active : Mother, Father Status:Active Family history of myocardial infarction: Father(V17.3, Z82.49) Status:Active Unknown Family Member Name Dates Details Oral cancer: Mother Status:Active : Mother, Father Status:Active Family history of myocardial infarction: Father(V17.3, Z82.49) Status:Active Unknown Family Member Name Dates Details Oral cancer: Mother Status:Active : Mother, Father Status:Active Family history of myocardial infarction: Father(V17.3, Z82.49) Status:Active Unknown Family Member Name Dates Details Oral cancer: Mother Status:Active : Mother, Father Status:Active Family history of myocardial infarction: Father(V17.3, Z82.49) Status:Active Unknown Family Member Name Dates Details Oral cancer: Mother Status:Active : Mother, Father Status:Active Family history of myocardial infarction: Father(V17.3, Z82.49) Status:Active Unknown Family Member Name Dates Details Oral cancer: Mother Status:Active : Mother, Father Status:Active Family history of myocardial infarction: Father(V17.3, Z82.49) Status:Active Advance Directives No Advanced Directives Records FoundNo Advanced Directives Records FoundNo Advanced Directives Records FoundNo Advanced Directives Records FoundNo Advanced Directives Records FoundNo Advanced Directives Records Found Chief Complaint * thyroid check * very fatigue * rash on right arm and right foot * physical * sore low back pain * physical * sore low back pain * I spent 15 minutes obtaining and discussing depression screening using pHq-2 questions with patientdocumented in the chart treatment plan discussI spent 15 minutes [id number] I spent 15 minutes [id number]. This patient discussing cardiovascular risk and behavior therapy of nutrition choices, exercise, and elevation of the habits contributing to risk. We agree on plan how they may be able to reduce the current cardiovascular risk for patient with risk calculation more than 10% aspirin use was discussed and encouraged unless no one allergy or increased discomfort bleeding or contraindication use of aspirin * thyroid check * right shoulder pain that goes from ear down arm * discuss weight Obesity arthralgia myalgia fatigue tiredObesity arthralgia myalgia fatigue tired obesity chronic fatigue sleep apnea advised use a CPAP started in the pressure H2O 25* cough possibly due to a medication * discuss weight Reason for Referral Specialty Diagnoses / Procedures Referred By Yuli zafar Referred To Contact Radiology Diagnoses Hypertension, unspecified type Procedures CT cardiac scoring wo IV contrast Delbert Cho MD [address] [place] [address] Referral ID Status Reason Start Date Expiration Date Visits Requested Visits Authorized [id number] Pending Review Perform Procedure 12/29/2023 12/28/2024 1 1 Specialty Diagnoses / Procedures Referred By Yuli zafar Referred To Contact Gastroenterology Diagnoses Encounter for screening mammogram for malignant neoplasm of breast Hypertension, unspecified type Obesity, unspecified classification, unspecified obesity type, unspecified whether serious comorbidity present Annual visit for general adult medical examination with abnormal findings Procedures Colonoscopy Screening; Average Risk Patient WA COLONOSCOPY FLX DX W/COLLJ SPEC WHEN PFRMD WA COLON CA SCRN NOT HI RSK IND WA COLORECTAL SCRN; HI RISK IND WA COLONOSCOPY W/BIOPSY SINGLE/MULTIPLE WA COLSC FLX W/RMVL OF TUMOR POLYP LESION SNARE TQ WA COLSC FLX W/REMOVAL LESION BY HOT BX FORCEPS Delbert Cho MD [address] [place] [address] Referral ID Status Reason Start Date Expiration Date V isits Requested Visits Authorized [id number] Pending Review 12/29/2023 12/28/2024 1 1 Specialty Diagnoses / Procedures Referred By Yuli zafar Referred To Contact Radiology Diagnoses Encounter for screening mammogram for malignant neoplasm of breast Procedures BI mammo bilateral screening tomosynthesis Delbert Cho MD [address] [place] [address] Referral ID Status Reason Start Date Expiration Date Visits Requested Visits Authorized [id number] Authorized Perform Procedure 12/29/2023 12/28/2024 1 1 Additional Source Comments INFORMATION SOURCE (unrecogn ized section and content) DATE CREATED AUTHOR AUTHOR'S ORGANIZ ATION 04/21/2018 [facility] DATE CREATED AUTHOR AUTHOR'S ORGANIZ ATION 12/03/2021 [facility] DATE CREATED AUTHOR AUTHOR'S ORGANIZ ATION 12/23/2022 [facility] DATE CREATED AUTHOR AUTHOR'S ORGANIZ ATION 01/01/2023 [facility] DATE CREATED AUTHOR AUTHOR'S ORGANIZ ATION 05/31/2023 [facility] Source Comments (unrecognize d section and content) In the event this informatio n is protected by the Federal Confidentiality of Alcohol and Drug Abuse Patient Records regulations: The Federal rules restrict any use of the information to criminally investigate or prosecute any alcohol or drug abuse patient.[facility] Reason for Visit (unrecogniz ed section and content) Reason Comments Fatigue Over a month now Care Teams (unrecognized sec tion and content) 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 This clinical summary was aggregated from multiple sources. Caution should be exercised in using it in the provision of clinical care. This summary normalizes information from multiple sources, and as a consequence, information in this document may materially change the coding, format and clinical context of patient data. In addition, data may be omitted in some cases. CLINICAL DECISIONS SHOULD BE BASED ON THE PRIMARY CLINICAL RECORDS. [employer] provides no warranty or guarantee of the accuracy or completeness of information in this document.
[2023-12-30 10:32] LABS: Color, Urine Yellow (Yellow); Glucose, Dipstick Normal (Normal); Ketone-Dipstick 5 mg/dl (Negative); Leukocyte Esterase-Dipstick 25 /ul (Negative); Nitrite-Dipstick Negative (Negative); Occult Blood-Urine Negative /ul (Negative); Protein-Dipstick 15 mg/dl (Negative); Specific Gravity, Urine 1.015 (1.002-1.030); Urine Bilirubin Dipstick Negative (Negative); Urine Clarity Sl. Cloudy (Clear); Urine Urobilinogen Normal (Normal); Urine pH 6.5 (5.0 - 8.0)
[2023-12-30 10:34] LABS: Absolute Lymphocyte Count 2.74 X10^3/uL (0.83-4.51); Absolute Neutrophil Count 4.4 X10^3/uL (2.0-7.7); Basophil# 0.07 X10^3/uL; Basophil% 0.9 % (0-1); Eosinophil# 0.21 X10^3/uL; Eosinophils% 2.6 % (0-5); Hematocrit 39.2 % (37-47); Lymphocyte # 2.74 X10^3/ul (0.83-4.51); Lymphocyte % 33.8 % (19-41); Mean Corp Hgb Conc 33.2 g/dL (32-36); Mean Corpuscular Hgb 28.8 pg (27.0-32.0); Mean Corpuscular Volume 86.7 fL (81-99); Mean Platelet Vol. 10.1 fl (6.2-12.0); Monocyte# 0.66 X10^3/uL; Monocyte% 8.1 % (0-10); NRBC Flagged by Analyzer 0 % (0-5); Neutrophil # 4.41 X10^3/uL (2.7-7.7); Neutrophil % 54.5 % (47-70); Platelet Count 292 K/mm3 (150-450); RBC Distribution Width CV 12.6 % (11.6-14.6); RBC Distribution Width SD 39.6 fl (35.1-43.9); Red Blood Count 4.52 M/mm3 (4.2-5.4); White Blood Count 8.1 K/mm3 (4.4-11.0)
[2023-12-30 10:41] LABS: Squamous Epithelial Cells - UA 0-5 SEEN /hpf (5-10); White Blood Cells 0-5 SEEN /hpf (0-5)
[2023-12-30 11:14] LABS: Hemoglobin A1c 5.7 % (3.8-5.6)
[2023-12-30 11:19] LABS: AST(SGOT) 28 U/L (15-37); Alanine Aminotransfer ALT/SGPT 58 U/L (13-56); Albumin, Serum 3.4 g/dL (3.2-5.0); Alkaline Phosphatase 107 U/L (45-117); Anion Gap 6 (5-15); BUN 16 mg/dL (7-18); BUN/Creat Ratio 21.5 RATIO (10-20); Calcium,Total 9.3 mg/dL (8.5-10.1); Chloride 109 mmol/L (98-107); Cholesterol 185 mg/dL (200); Creatinine, Serum 0.74 mg/dL (0.55-1.02); EST Glomerular Filtration Rate 85 mL/min (>60); Est Glom Filt Rate - Afr Amer 103 mL/min (>60); Globulin 3.4 g/dL (2.2-4.2); Glucose 112 mg/dL (74-106); High Density Lipoprotein 46 mg/dL; Potassium 3.8 mmol/L (3.5-5.1); Protein, Total 6.8 g/dL (6.4-8.2); Sodium Level 142 mmol/L (136-145); T4 Free Direct 1.04 ng/dL (0.76-1.46); Thyroid Stim Hormone (TSH) 3.83 uIU/mL (0.358-3.74); Triglycerides 99 mg/dL; Very Low Density Lipoprotein 20 mg/dL (5-40)
[2023-12-30 11:46] LABS: HIV - WCH Non-Reactive (Nonreactive); Hepatitis C Antibody Non-Reactive (Nonreactive)
== END | disposition home or self-care (01) ==
LOC: MTLAB 07:23
DX: Z00.01 Encounter for general adult medical examination with abnormal findings (principal); E66.9 Obesity, unspecified; I10 Essential (primary) hypertension
CPT/HCPCS: 36415; 80053; 80061; 81001; 83036; 84439; 84443; 85025; 86703; 86803

== ENCOUNTER → 2025-04-26 | Outpatient (CLI) | payer OTHER, SELFPAY ==
[2025-04-26 16:49] LABS: Hematocrit 41.0 % (37-47); Hemoglobin 14.0 g/dL (12.0-15.0); Immature Granulocytes Count 0.020 X10^3/uL (0.0-0.0); Mean Corp Hgb Conc 34.1 g/dL (32-36); Mean Corpuscular Volume 86.7 fL (81-99); Mean Platelet Vol. 9.7 fl (6.2-12.0); NRBC Flagged by Analyzer 0 % (0-5); Platelet Count 284 K/mm3 (150-450); RBC Distribution Width CV 12.5 % (11.6-14.6); RBC Distribution Width SD 39.4 fl (35.1-43.9); Red Blood Count 4.73 M/mm3 (4.2-5.4); White Blood Count 8.0 K/mm3 (4.4-11.0)
[2025-04-26 17:38] LABS: AST(SGOT) 28 U/L (<=31); Alanine Aminotransfer ALT/SGPT 33 U/L (<=34); Albumin, Serum 4.2 g/dL (3.5-5.0); Alkaline Phosphatase 121 U/L (35-104); Anion Gap 11 (5-15); BUN 14 mg/dL (4-19); BUN/Creat Ratio 18.7 RATIO (10-20); Calcium,Total 10.1 mg/dL (7.6-11.0); Carbon Dioxide 24.7 mmol/L (21.0-32.0); Chloride 104 mmol/L (98-108); Cholesterol 189 mg/dL (<=200); Globulin 3.1 g/dL (2.2-4.2); Glucose 81 mg/dL (70-99); Low Density Lipoprotein Calc. 123 mg/dL; Potassium 4.3 mmol/L (3.3-5.1); Triglycerides 111 mg/dL; Very Low Density Lipoprotein 22 mg/dL (5-40); cholesterol:hdl ratio screen 4.35
[2025-04-26 17:41] LABS: Follicle Stimulating Hormone 14.2 mIU/mL; Vitamin B12 368 pg/mL (180-914); Vitamin D,25 Hydroxy 37.6 ng/mL (30-100)
[2025-04-26 18:02] LABS: Free T3 2.8 pg/mL (2.18-3.98)
== END | disposition home or self-care (01) ==
LOC: VSLAB 11:49
PROVIDERS: PCP Nurse Practitioner Family; Visit Provider Nurse Practitioner Family
DX: E55.9 Vitamin D deficiency, unspecified (principal); E03.9 Hypothyroidism, unspecified; I10 Essential (primary) hypertension; E78.5 Hyperlipidemia, unspecified; R53.83 Other fatigue; N95.1 Menopausal and female climacteric states
CPT/HCPCS: 36415; 80053; 80061; 82306; 82607; 82670; 83001; 83002; 84439; 84443; 84481; 85025